=== PATIENT | male | born 1950 | race Caucasian/White ===

== ENCOUNTER → 2019-06-06 09:12 | Outpatient (CLI) | payer MEDICARE, SELFPAY ==
--- NOTE | ~2019-06-06 | XR_ITS ---
EXAMINATION: XR chest 2V DATE: 06/06/2019 09:27 INDICATION: Nicotine dependence, unspecified, uncomplicated. Prostate cancer. TECHNIQUE: Frontal and lateral views of the chest were obtained. COMPARISON: None. FINDINGS: The chest demonstrates clear lungs without pneumonia, pleural effusion, or pneumothorax. Th e heart size is normal. There is a stent graft in descending thoracic aorta. IMPRESSION: 1. No acute cardiopulmonary disease. Reviewed, dictated and finalized at location A. ICATION TESTER
== END ==
PROVIDERS: PCP Family Medicine; Visit Provider Family Medicine
DX: F17.200 Nicotine dependence, unspecified, uncomplicated (principal)
CPT/HCPCS: 71046

== ENCOUNTER 2019-07-05 08:09 | Outpatient (CLI) | payer MEDICARE, SELFPAY ==
--- NOTE | ~2019-07-05 | CT_ITS ---
EXAMINATION: CT chest abdomen pelvis w con EXAM DATE: 07/05/2019 09:00 INDICATION: Prostate cancer. TECHNIQUE: Spiral CT of the chest, abdomen and pelvis was performed following intravenous injection o f 100 mL Omnipaque 350. Axial, coronal and sagittal images were reviewed. Coronal maximum intensity pixel images of chest reviewed. The dose-length product (DLP) for this examination was 659.09 mGy-c m. The exposure was tailored according to patient size (auto mA exposure control), and iterative rec onstruction (ASIR) was used as additional dose reduction technique. There is no prior study for carmelita pimentel. FINDINGS: CHEST: There are 2 left upper lobe nodules, largest measuring about 4 x 9 mm. Most likely postinfect ious but 3-six-month follow-up low-dose chest CT is recommended. There is descending thoracic aortic endograft. Mild emphysema and hyperinflation. There are no pleural or pericardial effusions. Trach eobronchial tree is patent. There is no mediastinal, hilar or axillary lymphadenopathy. There is no pneumothorax. Heart normal in size. No evidence of coronary arterial calcification. No central pulmonary emboli. ABDOMEN PELVIS: The liver, spleen, adrenal glands and pancreas are unremarkable. Gallbladder is unre markable. No biliary obstruction. Portal and splenic veins are patent. Kidneys enhance symmetrical ly. There is no hydronephrosis. There are small bilateral inguinal fat-containing hernias. Probable prostatectomy. Correlate with surgical history. The bladder is unremarkable. There is no retroperi toneal or pelvic lymphadenopathy. There is aortoiliac ectasia with scattered arteriosclerotic disea se. Maximal abdominal aortic caliber is 3 cm. The appendix is normal. The stomach and small bowel are unremarkable. There is expected amount of c olonic stool. Mild to moderate sigmoid predominant. No free intraperitoneal gas. There are no osteo blastic or osteolytic lesions identified. IMPRESSION: 1. Two left apical nodules up to 9 mm, likely postinfectious but 3-six-month follow-up low-dose ches t CT recommended. 2. No evidence of metastatic disease. 3. Colonic diverticulosis. 4. Aortoiliac ectasia. Reviewed, dictated and finalized at location B. ICATION SUPPORT DEVELOPER IMPRESSION: 1. Two left apical nodules up to 9 mm, likely postinfectious but 3-six-month f ollow-up low-dose chest CT recommended. 2. No evidence of metastatic disease. 3. Colonic diverticulosis. 4. Aortoiliac ectasia.
--- NOTE | ~2019-07-05 | NM_ITS ---
EXAMINATION: NM bone scan whole body DATE: 07/05/2019 12:12 INDICATION: Prostate cancer TECHNIQUE: 25.7 mCi Tc-99m HDP was administered intravenously. Delayed whole-body scintigrams were o btained. COMPARISON: CT chest, abdomen and pelvis dated 07/05/2019 FINDINGS: Typical pattern of scattered likely degenerative joint centered uptake most prominent at the radial a spect of the carpi, at the lateral compartment of the right knee at the medial side of the right ankl e and to a less degree at the bilateral elbows and mid feet. Additional likely degenerative diffuse i ncreased uptake in the mid to lower cervical and lower lumbar spine with corresponding severe spondyl osis evident on the CT images. No other suspicious foci of abnormal bone uptake to suggest osteoblast ic metastatic disease. IMPRESSION: 1. No evident metastatic disease. Reviewed, dictated and finalized at location A. CLEANING SUPERVISOR
[2019-07-05 08:49] LABS: Blood Urea Nitrogen 20 mg/dL (8-26); Estimated Glomerular Filt Rate > 60
== END 2019-07-05 08:10 | disposition home or self-care (01) ==
PROVIDERS: PCP Family Medicine; Visit Provider Internal Medicine Hematology & Oncology
DX: C61 Malignant neoplasm of prostate (principal); K57.90 Diverticulosis of intestine, part unspecified, without perforation or abscess without bleeding; I77.819 Aortic ectasia, unspecified site
CPT/HCPCS: 71260; 74177; 78306; A9561; Q9967

== ENCOUNTER 2020-06-16 09:53 | Outpatient (CLI) | payer MEDICARE, SELFPAY ==
--- NOTE | ~2020-06-16 | XR_ITS ---
EXAMINATION: XR chest 2V DATE: 06/16/2020 10:08 INDICATION: Left-sided chest pain. Thoracic aortic aneurysm. TECHNIQUE: Frontal and lateral views of the chest were obtained. COMPARISON: Chest 2 views 116/, chest CT 07/05/2019 FINDINGS: The chest demonstrates clear lungs without pneumonia, pleural effusion, or pneumothorax. Th e heart size is normal. There is a stent graft in descending thoracic aorta. IMPRESSION: 1. No acute cardiopulmonary disease. Reviewed, dictated and finalized at location A. ICE DESK DIRECTOR
== END 2020-06-16 09:54 | disposition home or self-care (01) ==
LOC: ANHBWCIMG 09:55
PROVIDERS: PCP Family Medicine; Visit Provider Family Medicine
DX: I72.9 Aneurysm of unspecified site (principal); F17.200 Nicotine dependence, unspecified, uncomplicated
CPT/HCPCS: 71046

== ENCOUNTER 2020-07-13 10:02 | Outpatient (CLI) | payer MEDICARE, SELFPAY ==
[2020-07-13 18:47] LABS: Add Urine Microscopic? NO; Appearance Urine Clear (Clear); Bilirubin Urine Negative (Negative); Blood Urine Negative (Negative); Color Urine Yellow (Yellow); Glucose Urine UA Negative (Negative); Ketones Urine Negative (Negative); Leukocyte Esterase Ur Negative LEU/UL (Negative); Nitrate Urine Negative (Negative); Protein Urine Negative (Negative); Specific Grav Ur 1.012 (1.001-1.035); Urobilinogen Urine Negative mg/dL (<2.0)
[2020-07-14 09:09] LABS: Basophils Absolute Auto 0.1 K/mm3 (0.0-0.1); Basophils Percent Auto 1.3 % (0.2-1.2); Eosinophils Absolute Auto 0.4 K/mm3 (0-0.3); Hematocrit 50.9 % (42.0-52.0); Hemoglobin 17.4 g/dL (14.0-18.0); Immature Granulocyte Absolute 0.03 K/mm3 (0.00-0.031); Immature Granulocyte Percent A 0.3 % (0-0.5); Lymphocytes Absolute Auto 3.47 K/mm3 (0.9-3.2); Lymphocytes Percent Auto 36.1 % (18.3-44.2); Mean Corpuscular HGB Conc 34.2 g/dl (32-36); Mean Corpuscular Hemoglobin 30.9 pg (26-34); Mean Corpuscular Volume 90.2 fl (80-100); Mean Platelet Volume 10.7 fl (7.4-10.4); Monocytes Absolute Auto 0.7 K/mm3 (0.1-0.6); Monocytes Percent Auto 7.4 % (2.6-8.5); Neutrophils Absolute Auto 4.9 K/mm3 (1.3-6.7); Neutrophils Percent Auto 50.9 % (45.5-73.1); Platelet Count Result 204 k/mm3 (150-375); Red Blood Count 5.64 M/mm3 (4.6-6.20); Red Cell Distribution Width 12.8 % (11.5-14.5); White Blood Count 9.6 K/mm3 (4.5-10.0)
[2020-07-14 09:42] LABS: Vitamin D 25 Hydroxy 29.5 ng/mL
[2020-07-14 10:51] LABS: Alanine Aminotransferase 35 U/L (4-50); Albumin Level 4.4 g/dL (3.5-5.1); Alkaline Phosphatase 88 U/L (38-126); Anion Gap 8 mmol/L (8-16); Aspartate Amino Transferase 31 U/L (17-59); Bilirubin,Total 0.6 mg/dL (0.2-1.3); Blood Urea Nitrogen 21 mg/dL (9-20); Calcium 9.4 mg/dL (8.4-10.2); Carbon Dioxide 25 mmol/L (22-30); Chloride 107 mmol/L (98-107); Cholesterol 196 mg/dL (0-200); Estimated Glomerular Filt Rate > 60; Glucose 101 mg/dL (75-110); HDL Direct 28 mg/dL; Potassium 3.8 mmol/L (3.4-5.0); Sodium 140 mmol/L (137-145); Triglycerides 145 mg/dL (<150)
[2020-07-14 11:01] LABS: LDL Cholesterol Direct 135 mg/dL
[2020-07-14 11:55] LABS: Folic Acid 8.4 ng/mL (2.76->20)
== END 2020-07-13 10:03 | disposition home or self-care (01) ==
PROVIDERS: PCP Family Medicine; Visit Provider Family Medicine
DX: C61 Malignant neoplasm of prostate (principal); F17.200 Nicotine dependence, unspecified, uncomplicated; I72.9 Aneurysm of unspecified site; R53.83 Other fatigue; R79.89 Other specified abnormal findings of blood chemistry; Z79.899 Other long term (current) drug therapy; I10 Essential (primary) hypertension
CPT/HCPCS: 36415; 80053; 80061; 81003; 82306; 82607; 82746; 84443; 85025

== ENCOUNTER 2021-05-05 09:20 | Outpatient (CLI) | payer MEDICARE, SELFPAY ==
--- NOTE | ~2021-05-05 | CT_ITS ---
EXAMINATION: CTA chest DATE: 05/05/2021 10:13 INDICATION: Thoracic aortic aneurysm without rupture. TECHNIQUE: Computed tomographic angiography (CTA) of the chest was performed without and with 100 mL Omnipaque-350 intravenous contrast. Automated exposure control and iterative reconstruction technique were employed. The dose-length product was 568.16 mGy-cm. Maximum intensity projection 3D-reconstruc tions of the aorta and other arteries were constructed by the technologist on a separate workstation. COMPARISON: CT 07/05/2019 FINDINGS: There is mild scarring at the lung apices. There are chronic nodules in left lung apex, con sistent with scarring. There is mild emphysema. There is mild atelectasis bilaterally. There is a 7 m m part-solid nodule in left lower lobe. There are chronic mild groundglass opacities in left upper lo be. No pleural effusion. The heart size is normal. No pericardial effusion. There is chronic plaque i n the ascending aorta and arch arteries without significant stenosis. There is ectasia of descending thoracic aorta measuring 3.9 cm with stent graft in expected position. No endoleak. There is moderate stenosis of celiac axis and mild stenosis of superior mesenteric artery. There is no significant zo nosis of the renal arteries. There is mild stenosis of the visualized portion of abdominal aorta. The re is cortical thinning of the kidneys. There is severe thoracic and cervical spondylosis. IMPRESSION: 1. Ectasia of the descending thoracic aorta measuring 3.9 cm with stent graft in expected position. N o endoleak. 2. 7 mm part-solid nodule in left lung lower lobe, probably benign. Noncontrast low-dose chest CT is recommended in 6 months. 3. Mild emphysema. Reviewed, dictated and finalized at location A. ING SUPERVISOR IMPRESSION: 1. Ectasia of the descending thoracic aorta measuring 3.9 cm with stent graft i n expected position. No endoleak. 2. 7 mm part-solid nodule in left lung lower lobe, probably benign. Noncontrast low-dose chest CT is recommended in 6 months. 3. Mild emphysema.
[2021-05-05 10:04] LABS: Estimated Glomerular Filt Rate > 60
[2021-05-05 11:16] LABS: Hematocrit 50.1 % (42.0-52.0); Hemoglobin 17.2 g/dL (14.0-18.0); Mean Corpuscular HGB Conc 34.3 g/dl (32-36); Mean Corpuscular Hemoglobin 31.6 pg (26-34); Mean Corpuscular Volume 91.9 fl (80-100); Platelet Count Result 205 k/mm3 (150-375); Red Blood Count 5.45 M/mm3 (4.6-6.20); Red Cell Distribution Width 12.8 % (11.5-14.5); White Blood Count 8.8 K/mm3 (4.5-10.0)
[2021-05-05 11:59] LABS: Alanine Aminotransferase 50 U/L (4-50); Albumin Level 4.5 g/dL (3.5-5.1); Alkaline Phosphatase 93 U/L (38-126); Anion Gap 7 mmol/L (8-16); Aspartate Amino Transferase 42 U/L (17-59); Bilirubin,Total 0.6 mg/dL (0.2-1.3); Blood Urea Nitrogen 17 mg/dL (9-20); Carbon Dioxide 29 mmol/L (22-30); Chloride 98 mmol/L (98-107); Cholesterol 199 mg/dL (0-200); Estimated Glomerular Filt Rate > 60; Glucose 89 mg/dL (65-110); HDL Direct 25 mg/dL; Potassium 3.7 mmol/L (3.4-5.0); Sodium 134 mmol/L (137-145); Triglycerides 177 mg/dL (<150)
[2021-05-05 12:10] LABS: LDL Cholesterol Direct 132 mg/dL
[2021-05-05 12:44] LABS: Hemoglobin A1C 5.2 % (<5.7)
== END 2021-05-05 09:21 | disposition home or self-care (01) ==
PROVIDERS: PCP Family Medicine; Visit Provider Family Medicine
DX: I71.2 Thoracic aortic aneurysm, without rupture (principal); C61 Malignant neoplasm of prostate; F17.200 Nicotine dependence, unspecified, uncomplicated; I72.9 Aneurysm of unspecified site; R07.9 Chest pain, unspecified; N52.9 Male erectile dysfunction, unspecified; Z79.899 Other long term (current) drug therapy; J43.9 Emphysema, unspecified; R91.8 Other nonspecific abnormal finding of lung field
CPT/HCPCS: 71275; 80053; 80061; 83036; 85027; Q9967

== ENCOUNTER 2021-11-09 07:49 | Outpatient (CLI) | payer MEDICARE, SELFPAY ==
[2021-11-09 20:14] LABS: Anion Gap 7 mmol/L (8-16); Blood Urea Nitrogen 20 mg/dL (9-20); Calcium 9.1 mg/dL (8.4-10.2); Carbon Dioxide 25 mmol/L (22-30); Chloride 108 mmol/L (98-107); Estimated Glomerular Filt Rate > 60; Glucose 99 mg/dL (65-110); Potassium 3.9 mmol/L (3.4-5.0); Sodium 140 mmol/L (137-145)
[2021-11-09 20:30] LABS: Vitamin D 25 Hydroxy 43.5 ng/mL
[2021-11-12 11:31] LABS: PSA, Free 12.08 ng/mL; PSA, Total 149.5 ng/mL (<=4.0)
== END 2021-11-09 07:50 | disposition home or self-care (01) ==
PROVIDERS: PCP Family Medicine; Visit Provider Family Medicine
DX: E55.9 Vitamin D deficiency, unspecified (principal); E87.1 Hypo-osmolality and hyponatremia; C61 Malignant neoplasm of prostate
CPT/HCPCS: 36415; 80048; 82306; 84153; 84154

== ENCOUNTER 2022-03-27 11:36 | Emergency (ER) | payer MEDICARE, SELFPAY ==
[2022-03-27 12:20] VITALS: BP 141/71; PULSE 81; RESP 16; TEMP 37.2; O2SAT 97
--- NOTE | 2022-03-27 13:21 | PC.NURSE ---
1305-- pt left exam room and hollered at the registration girl that it was taking too long and that he was in pain, and that he was leaving to go somewhere else. we informed him that his turn was almost here and pt states that he is just going to leave. pt left room in stable, ambulatory condition. pt left without being seen.
== END 2022-03-27 13:05 | disposition left against medical advice (07) ==
LOC: EXPBETH 11:39
PROVIDERS: Emergency Provider Nurse Practitioner; PCP Family Medicine
DX: Z53.21 Procedure and treatment not carried out due to patient leaving prior to being seen by health care provider (principal)
CPT/HCPCS: 99199

== ENCOUNTER 2022-08-12 08:07 | Outpatient (CLI) | payer MEDICARE, SELFPAY ==
[2022-08-12 19:10] LABS: Basophils Absolute Auto 0.1 K/mm3 (0.0-0.1); Basophils Percent Auto 1.1 % (0.2-1.2); Eosinophils Absolute Auto 0.4 K/mm3 (0-0.3); Eosinophils Percent Auto 5.2 % (0-4.4); Hematocrit 52.6 % (42.0-52.0); Hemoglobin 17.6 g/dL (14.0-18.0); Immature Granulocyte Absolute 0.02 K/mm3 (0.00-0.031); Immature Granulocyte Percent A 0.2 % (0-0.5); Lymphocytes Absolute Auto 3.27 K/mm3 (0.9-3.2); Lymphocytes Percent Auto 38.6 % (18.3-44.2); Mean Corpuscular HGB Conc 33.5 g/dl (32-36); Mean Corpuscular Hemoglobin 31.5 pg (26-34); Mean Corpuscular Volume 94.1 fl (80-100); Mean Platelet Volume 10.8 fl (7.4-10.4); Monocytes Absolute Auto 0.9 K/mm3 (0.1-0.6); Monocytes Percent Auto 10.4 % (2.6-8.5); Neutrophils Absolute Auto 3.8 K/mm3 (1.3-6.7); Neutrophils Percent Auto 44.5 % (45.5-73.1); Platelet Count Result 204 k/mm3 (150-375); Red Blood Count 5.59 M/mm3 (4.6-6.20); Red Cell Distribution Width 13.2 % (11.5-14.5); White Blood Count 8.5 K/mm3 (4.5-10.0)
[2022-08-12 19:22] LABS: Alanine Aminotransferase 104 U/L (6-50); Albumin Level 4.6 g/dL (3.5-5.1); Alkaline Phosphatase 123 U/L (38-126); Anion Gap 5 mmol/L (8-16); Aspartate Amino Transferase 64 U/L (17-59); Bilirubin,Total 0.9 mg/dL (0.2-1.3); Blood Urea Nitrogen 19 mg/dL (9-20); Carbon Dioxide 32 mmol/L (22-30); Chloride 103 mmol/L (98-107); Cholesterol 146 mg/dL (0-200); Estimated Glomerular Filt Rate > 60; Glucose 105 mg/dL (65-110); HDL Direct 22 mg/dL; Potassium 3.5 mmol/L (3.4-5.0); Sodium 140 mmol/L (137-145); Triglycerides 128 mg/dL (<150)
[2022-08-12 19:33] LABS: LDL Cholesterol Direct 85 mg/dL
== END 2022-08-12 08:08 | disposition home or self-care (01) ==
PROVIDERS: PCP Family Medicine; Visit Provider Family Medicine
DX: C61 Malignant neoplasm of prostate (principal); I10 Essential (primary) hypertension; E55.9 Vitamin D deficiency, unspecified; M54.6 Pain in thoracic spine; I72.9 Aneurysm of unspecified site; M54.2 Cervicalgia; N52.9 Male erectile dysfunction, unspecified; R53.83 Other fatigue; I71.20 Thoracic aortic aneurysm, without rupture, unspecified; Z12.5 Encounter for screening for malignant neoplasm of prostate
CPT/HCPCS: 36415; 80053; 80061; 84153; 85025; G0103

== ENCOUNTER 2023-02-08 14:44 | Outpatient (CLI) | payer MEDICARE, SELFPAY ==
--- NOTE | ~2023-02-08 | XR_ITS ---
XR_[id number]_CR DATE: 02/08/2023 15:07 INDICATION: Chronic mid back and left neck and shoulder pain TECHNIQUE: AP, open-mouth, lateral, swimmer views COMPARISON: None FINDINGS: Incidentally noted is an endovascular graft of the thoracic aorta. Reversal of cervical curvature. C1 and C2 are normally aligned and the odontoid process is intact. There is no fracture or dislocation or locked facet. There is mild anterolisthesis at C2-3, C3-4 and C4-5. There is severe degenerative disc disease and mild retrolisthesis at C5-6. Moderately severe degenerative disc disease at C6-7. There is extensive degenerative changes throughout the apophyseal joints of the cervical spine and un covertebral joint spurring in the mid and lower cervical spine. IMPRESSION: Reversal cervical curvature Moderately severe cervical spondylosis; no fracture or dislocation or locked facet Reviewed, dictated and finalized at Location A. Reviewed, dictated and finalized at location A. IMPRESSION: Reversal cervical curvature Moderately severe cervical spondylosis; no fracture or dislocation or locked fa cet
--- NOTE | ~2023-02-08 | XR_ITS ---
XR thoracic spine 2V DATE: 02/08/2023 15:07 INDICATION: Chronic mid back pain radiating to left neck and shoulder TECHNIQUE: AP, lateral, swimmer views COMPARISON: None FINDINGS: Thoracic aortic endovascular graft from aortic arch into the proximal and mid descending th oracic aorta. There is minimal dextroscoliosis of the upper thoracic spine and mild levoscoliosis of the lower thor acic spine. No fracture or dislocation or bone destruction. The thoracic pedicles are intact. There is degenerati ve spurring of the thoracic spine. No paraspinal soft tissue thickening. IMPRESSION: Degenerative spurring and mild thoracic scoliosis Reviewed, dictated and finalized at location A.
[2023-02-08 20:00] LABS: Alanine Aminotransferase 53 U/L (6-50); Albumin Level 4.6 g/dL (3.5-5.1); Alkaline Phosphatase 109 U/L (38-126); Anion Gap 9 mmol/L (8-16); Aspartate Amino Transferase 74 U/L (17-59); Bilirubin,Total 0.8 mg/dL (0.2-1.3); Blood Urea Nitrogen 18 mg/dL (9-20); Calcium 9.4 mg/dL (8.4-10.2); Carbon Dioxide 28 mmol/L (22-30); Chloride 102 mmol/L (98-107); Cholesterol 151 mg/dL (0-200); Estimated Glomerular Filt Rate > 60; Glucose 98 mg/dL (65-110); HDL Direct 25 mg/dL; Potassium 3.9 mmol/L (3.4-5.0); Sodium 139 mmol/L (137-145); Triglycerides 181 mg/dL (<150)
[2023-02-08 20:11] LABS: LDL Cholesterol Direct 83 mg/dL
== END 2023-02-08 14:45 | disposition home or self-care (01) ==
PROVIDERS: PCP Family Medicine; Visit Provider Nurse Practitioner Adult Health
DX: Z51.81 Encounter for therapeutic drug level monitoring (principal); I10 Essential (primary) hypertension; M47.892 Other spondylosis, cervical region; M41.9 Scoliosis, unspecified
CPT/HCPCS: 36415; 72040; 72070; 80053; 80061